=== PATIENT | female | born 1945 | race Two or more races ===

== ENCOUNTER 2019-04-23 17:04 | Inpatient (IN) | payer MEDICARE, OTHER ==
[~2019-04-23] VITALS: Ht 157.5 cm; Wt 48.8 kg
[2019-04-23] MEDS ORDERED: OXYC10TA59 PO (17:13)
[2019-04-23] MEDS ORDERED: METF-960 PO (17:13)
[2019-04-23] MEDS ORDERED: LEVO25TA9 PO (17:13)
[2019-04-23 17:26] LABS: GLUCOSE,POINT OF CARE 173 MG/DL (70-110)
[2019-04-23 18:35] LABS: BASOPHILS % (AUTO) 0.6 % (0.0-2.0); EOSINOPHILS % (AUTO) 1.4 % (1.0-6.0); HEMATOCRIT 34.8 % (36-46); HEMOGLOBIN 12.2 g/dL (12.0-16.0); LYMPHOCYTES % (AUTO) 13.1 % (22.0-44.0); MEAN CORPUSCULAR HEMOGLOBIN 33.3 pg (26.0-34.0); MEAN CORPUSCULAR HGB CONC 34.9 G/dL (31.0-37.0); MEAN CORPUSCULAR VOLUME 95 fL (80-100); MONOCYTES # (AUTO) 0.8 K/uL (0.1-1.0); MONOCYTES % (AUTO) 9.8 % (2.0-9.0); NEUTROPHILS # (AUTO) 5.8 K/uL (1.8-7.7); NEUTROPHILS % (AUTO) 75.1 % (40.0-70.0); PLATELET COUNT (AUTO) 270 K/uL (150-450); RED BLOOD CELL COUNT(AUTO) 3.65 MIL/uL (4.00-5.20); RED CELL DISTRIBUTION WIDTH 13.4 % (11.5-14.5)
[2019-04-23 18:44] LABS: ANION GAP 7 mmol/L (8-16); CALCIUM, TOTAL 9.4 mg/dL (8.8-10.5); CARBON DIOXIDE 32 mmol/L (22-29); CHLORIDE 98 mmol/L (98-107); CREATININE 1.08 mg/dL (0.60-1.30); GLOMERULAR FILTR. RATE CALC 50 mL/min (>60); GLUCOSE,RANDOM 144 mg/dL (70-110); POTASSIUM 3.8 mmol/L (3.5-5.1); SODIUM SERUM 137 mmol/L (136-145); UREA NITROGEN, BLOOD 19 mg/dL (7-18)
[2019-04-23 18:51] LABS: ALANINE AMINOTRANSFERASE 46 U/L (12-78); ALBUMIN 3.6 g/dL (3.4-5.0); ALKALINE PHOSPHATASE 107 U/L (46-116); ASPARTATE AMINOTRANSFERASE 42 U/L (15-37); BILIRUBIN,TOTAL 0.8 mg/dL (0.1-1.0); TOTAL PROTEIN, SERUM 7.2 g/dL (6.4-8.2)
[2019-04-23] MEDS ORDERED: HALOPERIDOL 5 MG TABLET PO PRN (21:00)
[2019-04-23] MEDS ORDERED: ZOLPIDEM TARTRATE 10 MG TABLET PO PRN (21:00)
[2019-04-23] MEDS ORDERED: ACETAMINOPHEN 325 MG TABLET PO ONE (21:00)
[2019-04-24 01:40] VITALS: BP 141/70
[2019-04-24 02:06] VITALS: BP 141/72
[2019-04-24 08:05] LABS: CHOL/HDL RATIO 3.5 (3.9-5.7)
[2019-04-24] MEDS ORDERED: INSULIN LISPRO 100 UNITS/ML SQ PRN (09:00)
[2019-04-24] MEDS ORDERED: GLUCAGON,HUMAN RECOMBINANT 1 MG VIAL IM PRN (09:00)
[2019-04-24 11:56] LABS: GLUCOMETER DEV NAME(LOC) 3EX.; GLUCOSE,POINT OF CARE 197 MG/DL (70-110)
[2019-04-24 13:31] VITALS: BP 141/72
[2019-04-24] MEDS: MetFORMIN HCL 500 MG TABLET PO SCH (16:41)
[2019-04-24 17:21] LABS: GLUCOMETER DEV NAME(LOC) 3EX.; GLUCOSE,POINT OF CARE 121 MG/DL (70-110)
[2019-04-24 17:30] LABS: APPEARANCE,URINE CLOUDY (CLEAR); BILIRUBIN,URINE NEGATIVE (NEGATIVE); GLUCOSE, URINE (UA) 100 mg/dL (NEGATIVE); KETONES,URINE NEGATIVE (NEGATIVE); LEUKOCYTE ESTERASE ,URINE TRACE (NEGATIVE); NITRATE,URINE NEGATIVE (NEGATIVE); OCCULT BLOOD,URINE NEGATIVE (NEGATIVE); PH,URINE 7.5 (5.0-8.0); PROTEIN,URINE NEGATIVE (NEGATIVE)
[2019-04-24 17:35] LABS: AMPHET/METH SCREEN,URINE NEGATIVE (NEGATIVE); BARBITURATE SCREEN, URINE NEGATIVE (NEGATIVE); BENZODIAZEPINES SCREEN,URINE NEGATIVE (NEGATIVE); CANNABINOID SCREEN,URINE NEGATIVE (NEGATIVE); COCAINE SCREEN,URINE NEGATIVE (NEGATIVE); METHADONE SCREEN, URINE NEGATIVE (NEGATIVE); OPIATE SCREEN,URINE NEGATIVE (NEGATIVE)
[2019-04-24 17:37] LABS: PHENCYCLIDINE SCREEN,URINE NEGATIVE (NEGATIVE)
[2019-04-24 17:53] LABS: BACTERIA,URINE None Seen /HPF (None Seen); RBC,URINE None Seen /HPF (0-2); SQUAMOUS EPITHELIAL CELL,UR Moderate /LPF (None Seen); WBC,URINE 0-2 /HPF (0-5)
[2019-04-24 19:29] VITALS: BP 112/74
[2019-04-24] MEDS: ACETAMINOPHEN 500 MG TABLET PO PRN (19:29)
[2019-04-24 20:30] LABS: GLUCOMETER DEV NAME(LOC) 3EX.; GLUCOSE,POINT OF CARE 261 MG/DL (70-110)
[2019-04-24] MEDS: INSULIN LISPRO 100 UNITS/ML SQ PRN (21:00)
[2019-04-24] MEDS ORDERED: DEXTROSE 50%-WATER 25 GM/50 ML SYG IVP PRN (21:30)
[2019-04-25 05:48] LABS: GLUCOMETER DEV NAME(LOC) 3E.I 2; GLUCOSE,POINT OF CARE 125 MG/DL (70-110)
[2019-04-25] MEDS: MetFORMIN HCL 500 MG TABLET PO SCH ×2 (06:49→17:28)
[2019-04-25] MEDS ORDERED: LEVOTHYROXINE SODIUM 25 MCG TABLET PO SCH (07:00)
[2019-04-25 08:05] LABS: HEMOGLOBIN A1C 7.4 % (4.5-6.2)
[2019-04-25 08:35] LABS: FREE T4 (FREE THYROXINE) 0.89 ng/dL (0.76-1.46); THYROID STIMULATING HORMONE 25.67 uIU/mL (0.36-3.74)
[2019-04-25 09:00] VITALS: BP 156/94
[2019-04-25] MEDS ORDERED: FLUoxetine HCL 20 MG CAPSULE PO SCH (09:00)
[2019-04-25 11:50] LABS: GLUCOMETER DEV NAME(LOC) 3EX.; GLUCOSE,POINT OF CARE 182 MG/DL (70-110)
[2019-04-25] MEDS: INSULIN LISPRO 100 UNITS/ML SQ PRN ×3 (11:51→21:09)
[2019-04-25] MEDS: AmLODIPine BESYLATE 5 MG TABLET PO SCH (12:47)
[2019-04-25 16:00] VITALS: BP 134/72
[2019-04-25 17:08] LABS: GLUCOMETER DEV NAME(LOC) 3EX.; GLUCOSE,POINT OF CARE 159 MG/DL (70-110)
[2019-04-25 21:25] LABS: GLUCOMETER DEV NAME(LOC) 3EX.; GLUCOSE,POINT OF CARE 144 MG/DL (70-110)
[2019-04-26 03:39] VITALS: BP 156/90
[2019-04-26] MEDS: ACETAMINOPHEN 500 MG TABLET PO PRN (03:39)
[2019-04-26 05:58] LABS: GLUCOMETER DEV NAME(LOC) 3E.I 2; GLUCOSE,POINT OF CARE 146 MG/DL (70-110)
[2019-04-26] MEDS: LEVOTHYROXINE SODIUM 50 MCG TABLET PO SCH (06:41)
[2019-04-26] MEDS: MetFORMIN HCL 500 MG TABLET PO SCH ×2 (06:43→17:00)
[2019-04-26] MEDS: INSULIN LISPRO 100 UNITS/ML SQ PRN ×3 (06:45→21:38)
[2019-04-26] MEDS ORDERED: LEVOTHYROXINE SODIUM 25 MCG TABLET PO SCH (07:00)
[2019-04-26] MEDS: FLUoxetine HCL 20 MG CAPSULE PO SCH (08:33)
[2019-04-26] MEDS: AmLODIPine BESYLATE 5 MG TABLET PO SCH (08:33)
[2019-04-26 09:00] VITALS: BP 140/75
[2019-04-26 12:10] LABS: GLUCOMETER DEV NAME(LOC) 3EX.; GLUCOSE,POINT OF CARE 155 MG/DL (70-110)
[2019-04-26] MEDS: LORazepam 2 MG TABLET PO PRN (13:55)
[2019-04-26 16:00] VITALS: BP 123/74
[2019-04-26 17:28] LABS: GLUCOMETER DEV NAME(LOC) 3EX.; GLUCOSE,POINT OF CARE 122 MG/DL (70-110)
[2019-04-26 21:46] LABS: GLUCOMETER DEV NAME(LOC) 3EX.; GLUCOSE,POINT OF CARE 145 MG/DL (70-110)
[2019-04-27 05:23] LABS: GLUCOMETER DEV NAME(LOC) 3E.I 2; GLUCOSE,POINT OF CARE 106 MG/DL (70-110)
[2019-04-27] MEDS: LEVOTHYROXINE SODIUM 50 MCG TABLET PO SCH (06:34)
[2019-04-27] MEDS: MetFORMIN HCL 500 MG TABLET PO SCH ×2 (06:34→17:48)
[2019-04-27] MEDS: LORazepam 2 MG TABLET PO PRN (06:36)
[2019-04-27] MEDS: AmLODIPine BESYLATE 5 MG TABLET PO SCH (08:49)
[2019-04-27] MEDS: FLUoxetine HCL 20 MG CAPSULE PO SCH (08:49)
[2019-04-27 11:31] LABS: GLUCOMETER DEV NAME(LOC) 3EX.; GLUCOSE,POINT OF CARE 139 MG/DL (70-110)
[2019-04-27 14:50] VITALS: BP 127/77
[2019-04-27 16:00] VITALS: BP 118/68
[2019-04-27 16:37] LABS: GLUCOMETER DEV NAME(LOC) 3EX.; GLUCOSE,POINT OF CARE 155 MG/DL (70-110)
[2019-04-27] MEDS: NITROFURANTOIN/NITROFURAN MAC 100 MG CAPSULE [MACROBID] PO SCH (17:48)
[2019-04-27] MEDS: INSULIN LISPRO 100 UNITS/ML SQ PRN ×2 (17:54→21:21)
[2019-04-27 21:24] LABS: GLUCOMETER DEV NAME(LOC) 3EX.; GLUCOSE,POINT OF CARE 147 MG/DL (70-110)
[2019-04-28 06:08] LABS: GLUCOMETER DEV NAME(LOC) 3E.I 2; GLUCOSE,POINT OF CARE 96 MG/DL (70-110)
[2019-04-28] MEDS: MetFORMIN HCL 500 MG TABLET PO SCH ×2 (06:54→16:46)
[2019-04-28] MEDS: LEVOTHYROXINE SODIUM 50 MCG TABLET PO SCH (06:54)
[2019-04-28 08:00] VITALS: BP 135/80
[2019-04-28] MEDS: NITROFURANTOIN/NITROFURAN MAC 100 MG CAPSULE [MACROBID] PO SCH ×2 (08:59→16:46)
[2019-04-28] MEDS: FLUoxetine HCL 20 MG CAPSULE PO SCH (09:00)
[2019-04-28] MEDS: AmLODIPine BESYLATE 5 MG TABLET PO SCH (09:00)
[2019-04-28] MEDS: INSULIN LISPRO 100 UNITS/ML SQ PRN ×2 (11:20→17:33)
[2019-04-28 11:30] LABS: GLUCOMETER DEV NAME(LOC) 3EX.; GLUCOSE,POINT OF CARE 118 MG/DL (70-110)
[2019-04-28 17:29] LABS: GLUCOMETER DEV NAME(LOC) 3EX.; GLUCOSE,POINT OF CARE 202 MG/DL (70-110)
[2019-04-28 18:42] VITALS: BP 128/86
[2019-04-28 21:07] LABS: GLUCOMETER DEV NAME(LOC) 3EX.; GLUCOSE,POINT OF CARE 98 MG/DL (70-110)
[2019-04-29 00:09] VITALS: BP 150/81
[2019-04-29] MEDS: LORazepam 2 MG TABLET PO PRN (00:11)
[2019-04-29 05:58] LABS: GLUCOMETER DEV NAME(LOC) 3E.I 2; GLUCOSE,POINT OF CARE 95 MG/DL (70-110)
[2019-04-29 06:45] VITALS: BP 139/72
[2019-04-29] MEDS: LEVOTHYROXINE SODIUM 50 MCG TABLET PO SCH (06:45)
[2019-04-29] MEDS: MetFORMIN HCL 500 MG TABLET PO SCH ×2 (06:45→18:00)
[2019-04-29] MEDS: ACETAMINOPHEN 500 MG TABLET PO PRN (06:51)
[2019-04-29] MEDS: FLUoxetine HCL 20 MG CAPSULE PO SCH (09:26)
[2019-04-29] MEDS: AmLODIPine BESYLATE 5 MG TABLET PO SCH (09:26)
[2019-04-29] MEDS: NITROFURANTOIN/NITROFURAN MAC 100 MG CAPSULE [MACROBID] PO SCH ×2 (09:31→16:25)
[2019-04-29 10:43] VITALS: BP 145/84
[2019-04-29] MEDS ORDERED: FLUO-191 PO (10:49)
[2019-04-29] MEDS ORDERED: LEVO50 PO (11:13)
[2019-04-29] MEDS ORDERED: MACR100 PO (11:13)
[2019-04-29] MEDS ORDERED: AMLO5TAB9 PO (11:13)
[2019-04-29 17:24] LABS: GLUCOMETER DEV NAME(LOC) 3EX.; GLUCOSE,POINT OF CARE 108 MG/DL (70-110)
== END 2019-04-29 18:30 | disposition home or self-care (01) | DRG 885 ==
LOC: EMS 17:08 → 3EX 04-24
PROVIDERS: ADMIT Psychiatry & Neurology Psychiatry; ATTEND Psychiatry & Neurology Psychiatry
DX: F33.2 Major depressive disorder, recurrent severe without psychotic features (principal); R45.851 Suicidal ideations; E03.9 Hypothyroidism, unspecified; E11.9 Type 2 diabetes mellitus without complications; F12.90 Cannabis use, unspecified, uncomplicated; Z79.899 Other long term (current) drug therapy; Z82.49 Family history of ischemic heart disease and other diseases of the circulatory system; Z90.710 Acquired absence of both cervix and uterus; Z91.5 Personal history of self-harm; Z90.49 Acquired absence of other specified parts of digestive tract
CPT/HCPCS: 80074; 83036; 83735; 84439; 84443; G0378; G0480

== ENCOUNTER 2019-07-03 17:10 | Emergency (ER) | payer MEDICARE, MEDICAID ==
[~2019-07-03] VITALS: Ht 157.5 cm; Wt 63.6 kg
[~2019-07-03 17:10] MED LIST: AMLO5TAB9 PO; FLUO-191 PO; LEVO50 PO; MACR100 PO; METF-960 PO
[2019-07-03] MEDS ORDERED: CITA10TA68 PO (17:28)
[2019-07-03] MEDS ORDERED: ALEN70TA10 PO (17:28)
[2019-07-03 18:02] LABS: BASOPHILS % (AUTO) 0.4 % (0.0-2.0); EOSINOPHILS % (AUTO) 1.4 % (1.0-6.0); HEMATOCRIT 41.3 % (36-46); HEMOGLOBIN 13.8 g/dL (12.0-16.0); LYMPHOCYTES # (AUTO) 1.7 K/uL (1.0-4.8); LYMPHOCYTES % (AUTO) 21.2 % (22.0-44.0); MEAN CORPUSCULAR HEMOGLOBIN 29.8 pg (26.0-34.0); MEAN CORPUSCULAR HGB CONC 33.5 G/dL (31.0-37.0); MEAN CORPUSCULAR VOLUME 89 fL (80-100); MONOCYTES # (AUTO) 0.6 K/uL (0.1-1.0); MONOCYTES % (AUTO) 7.1 % (2.0-9.0); NEUTROPHILS # (AUTO) 5.4 K/uL (1.8-7.7); NEUTROPHILS % (AUTO) 69.9 % (40.0-70.0); PLATELET COUNT (AUTO) 278 K/uL (150-450); RED BLOOD CELL COUNT(AUTO) 4.64 MIL/uL (4.00-5.20); RED CELL DISTRIBUTION WIDTH 13.6 % (11.5-14.5)
[2019-07-03 18:16] LABS: ANION GAP 9 mmol/L (8-16); CALCIUM, TOTAL 9.6 mg/dL (8.8-10.5); CARBON DIOXIDE 30 mmol/L (22-29); CHLORIDE 100 mmol/L (98-107); CREATININE 0.99 mg/dL (0.60-1.30); GLOMERULAR FILTR. RATE CALC 55 mL/min (>60); GLUCOSE,RANDOM 158 mg/dL (70-110); POTASSIUM 3.2 mmol/L (3.5-5.1); SODIUM SERUM 139 mmol/L (136-145); UREA NITROGEN, BLOOD 25 mg/dL (7-18)
[2019-07-03 18:22] LABS: ALANINE AMINOTRANSFERASE 24 U/L (12-78); ALBUMIN 4.3 g/dL (3.4-5.0); ALKALINE PHOSPHATASE 100 U/L (46-116); ASPARTATE AMINOTRANSFERASE 14 U/L (15-37); BILIRUBIN,TOTAL 0.3 mg/dL (0.1-1.0); TOTAL PROTEIN, SERUM 8.4 g/dL (6.4-8.2)
[2019-07-03 18:49] LABS: CREATINE KINASE, TOTAL ONLY 42 U/L (26-192)
[2019-07-03] MEDS ORDERED: POTASSIUM CHLORIDE 20 MEQ ER TABLET PO ONE (19:45)
[2019-07-03 23:17] VITALS: BP 125/68
== END 2019-07-04 00:10 | disposition home or self-care (01) ==
LOC: EMS 17:19
DX: G30.9 Alzheimer's disease, unspecified (principal); F02.80 Dementia in other diseases classified elsewhere, unspecified severity, without behavioral disturbance, psychotic disturbance, mood disturbance, and anxiety; F98.9 Unspecified behavioral and emotional disorders with onset usually occurring in childhood and adolescence; E87.6 Hypokalemia; F10.10 Alcohol abuse, uncomplicated; F41.9 Anxiety disorder, unspecified; F32.9 Major depressive disorder, single episode, unspecified; E11.9 Type 2 diabetes mellitus without complications; I10 Essential (primary) hypertension; Z79.84 Long term (current) use of oral hypoglycemic drugs; Y90.0 Blood alcohol level of less than 20 mg/100 ml
CPT/HCPCS: 36415; 80053; 81002; 82550; 82962; 85025; 99284; G0480